=== PATIENT | male | born 1940 | race Caucasian/White ===

== ENCOUNTER 2021-02-15 10:15 | Outpatient (REF) | payer MEDICARE, SELFPAY ==
[2021-02-15 13:21] LABS: Alanine Aminotransferase 16 U/L (0-40); Anion Gap 12 (12-20); Blood Urea Nitrogen 18 mg/dL (9-16); Carbon Dioxide 30 mmol/L (22-29); Chloride 105 mmol/L (96-108); Estimated Glomerular Filt Rate 49; Potassium 4.8 mmol/L (3.3-5.1); Sodium 142 mmol/L (135-145)
== END 2021-02-15 10:16 | disposition home or self-care (01) ==
LOC: HO.10HDL 10:15
PROVIDERS: Absent Provider Internal Medicine Cardiovascular Disease; Visit Provider Family Medicine
DX: I10 Essential (primary) hypertension (principal); E78.00 Pure hypercholesterolemia, unspecified; Z79.899 Other long term (current) drug therapy
CPT/HCPCS: 36415; 80051; 82550; 82565; 84460; 84520

== ENCOUNTER 2021-07-12 10:04 | Outpatient (REF) | payer MEDICARE, SELFPAY ==
[2021-07-12 14:25] LABS: Anion Gap 13 (12-20); Blood Urea Nitrogen 22 mg/dL (9-16); Carbon Dioxide 28 mmol/L (22-29); Chloride 105 mmol/L (96-108); Cholesterol 136 mg/dL; Estimated Glomerular Filt Rate 49; HDL Cholesterol 49 mg/dL; LDL Cholesterol Calculated 70 mg/dl; Potassium 4.7 mmol/L (3.3-5.1); Sodium 141 mmol/L (135-145); Triglycerides 85 mg/dL
== END 2021-07-12 10:05 | disposition home or self-care (01) ==
LOC: HO.10HDL 10:04
PROVIDERS: Visit Provider Family Medicine
DX: E78.00 Pure hypercholesterolemia, unspecified (principal); N18.30 Chronic kidney disease, stage 3 unspecified
CPT/HCPCS: 36415; 80051; 80061; 82565; 84520

== ENCOUNTER 2022-01-24 07:31 | Outpatient (REF) | payer MEDICARE, SELFPAY ==
[2022-01-24 11:00] LABS: Alanine Aminotransferase 16 U/L (0-40); Anion Gap 12 (12-20); Blood Urea Nitrogen 17 mg/dL (9-16); Carbon Dioxide 27 mmol/L (22-29); Chloride 107 mmol/L (96-108); Estimated Glomerular Filt Rate 52; Potassium 4.2 mmol/L (3.3-5.1); Sodium 142 mmol/L (135-145)
== END 2022-01-24 07:32 | disposition home or self-care (01) ==
LOC: HO.10HDL 07:31
PROVIDERS: Visit Provider Family Medicine
DX: I10 Essential (primary) hypertension (principal); E78.00 Pure hypercholesterolemia, unspecified; Z79.899 Other long term (current) drug therapy
CPT/HCPCS: 36415; 80051; 82550; 82565; 84460; 84520

== ENCOUNTER 2022-09-26 10:50 | Outpatient (REF) | payer MEDICARE, SELFPAY ==
[2022-09-26 15:06] LABS: Alanine Aminotransferase 20 U/L (0-40); Anion Gap 16 (12-20); Aspartate Amino Transferase 23 U/L (5-37); Blood Urea Nitrogen 18 mg/dL (9-16); Carbon Dioxide 27 mmol/L (22-29); Chloride 104 mmol/L (96-108); Cholesterol 141 mg/dL; Estimated Glomerular Filt Rate 49; HDL Cholesterol 50 mg/dL; LDL Cholesterol Calculated 76 mg/dl; Potassium 4.8 mmol/L (3.3-5.1); Sodium 142 mmol/L (135-145); Triglycerides 77 mg/dL
== END 2022-09-26 10:51 | disposition home or self-care (01) ==
LOC: HO.10HDL 10:50
PROVIDERS: Visit Provider Family Medicine
DX: E78.00 Pure hypercholesterolemia, unspecified (principal); N18.30 Chronic kidney disease, stage 3 unspecified; Z79.899 Other long term (current) drug therapy
CPT/HCPCS: 36415; 80051; 80061; 82550; 82565; 84450; 84460; 84520

== ENCOUNTER 2023-04-10 10:18 | Outpatient (REF) | payer MEDICARE, SELFPAY ==
[2023-04-10 10:58] LABS: MANUAL DIFF FLAG NO
[2023-04-10 11:04] LABS: Basophils Absolute Auto 0.1 X10*3/uL (0.0-0.2); Basophils Percent Auto 0.9 % (0-2); Eosinophils Absolute Auto 0.2 X10*3/uL (0.0-0.4); Eosinophils Percent Auto 3.3 % (0-4); Hemoglobin 14.7 g/dl (14.0-18.0); Imm Gran Abs Auto 0.03 X10*3/uL (0.00-0.03); Imm Gran Pct Auto 0.5 % (0.0-0.4); Lymphocytes Absolute Auto 1.3 X10*3/uL (1.2-4.9); Lymphocytes Percent Auto 19.9 % (20-40); Mean Corpuscular Hemoglobin 30.9 pg (27.0-33.0); Mean Corpuscular Volume 96.8 fL (80.0-98.0); Mean Platelet Volume 9.9 fL (9.4-12.4); Monocytes Absolute Auto 0.8 X10*3/uL (0.1-1.2); Monocytes Percent Auto 11.9 % (2-11); Neutrophils Absolute Auto 4.2 x10*3/uL (2.0-8.3); Neutrophils Percent Auto 63.5 % (45-73); Platelet Count 182 X10*3/uL (160-400); Red Blood Count 4.75 X10*6/uL (4.60-5.80); Red Cell Distribution Width 13.7 % (11.0-16.0); White Blood Count 6.6 X10*3/uL (4.8-10.8)
[2023-04-10 11:49] LABS: Alanine Aminotransferase 18 U/L (0-40); Anion Gap 12 (12-20); Aspartate Amino Transferase 21 U/L (5-37); Blood Urea Nitrogen 21 mg/dL (9-16); Carbon Dioxide 28 mmol/L (22-29); Chloride 108 mmol/L (96-108); Estimated Glomerular Filt Rate 55; Potassium 4.7 mmol/L (3.3-5.1); Sodium 143 mmol/L (135-145)
== END 2023-04-10 10:19 | disposition home or self-care (01) ==
LOC: HO.10HDL 10:18
PROVIDERS: Visit Provider Family Medicine
DX: E78.00 Pure hypercholesterolemia, unspecified (principal); N18.30 Chronic kidney disease, stage 3 unspecified; R53.83 Other fatigue; Z79.899 Other long term (current) drug therapy
CPT/HCPCS: 36415; 80051; 82565; 84450; 84460; 84520; 85025

== ENCOUNTER 2023-12-06 08:37 | Outpatient (REF) | payer MEDICARE, SELFPAY ==
[2023-12-06 10:48] LABS: Alanine Aminotransferase 15 U/L (0-40); Anion Gap 12 (12-20); Aspartate Amino Transferase 20 U/L (5-37); Blood Urea Nitrogen 18 mg/dL (9-16); Carbon Dioxide 27 mmol/L (22-29); Chloride 106 mmol/L (96-108); Estimated Glomerular Filt Rate 48; Potassium 4.1 mmol/L (3.3-5.1); Sodium 141 mmol/L (135-145)
== END 2023-12-06 08:38 | disposition home or self-care (01) ==
LOC: HO.10HDL 08:37
PROVIDERS: Visit Provider Family Medicine
DX: I10 Essential (primary) hypertension (principal); E78.00 Pure hypercholesterolemia, unspecified; Z79.899 Other long term (current) drug therapy
CPT/HCPCS: 36415; 80051; 82550; 82565; 84450; 84460; 84520

== ENCOUNTER 2024-04-15 09:31 | Outpatient (REF) | payer MEDICARE, SELFPAY ==
[2024-04-15 11:31] LABS: Cholesterol 117 mg/dL (<200); Glucose Fasting 102 mg/dL (60-99); HDL Cholesterol 36 mg/dL (>40); LDL Cholesterol Calculated 65 mg/dL (<100); Triglycerides 81 mg/dL (<150)
== END 2024-04-15 09:32 | disposition home or self-care (01) ==
LOC: HO.10HDL 09:31
PROVIDERS: Visit Provider Family Medicine
DX: E78.00 Pure hypercholesterolemia, unspecified (principal); R73.9 Hyperglycemia, unspecified
CPT/HCPCS: 36415; 80061; 82947

== ENCOUNTER 2024-11-11 11:07 | Outpatient (REF) | payer MEDICARE, SELFPAY ==
[2024-11-11 14:01] LABS: Alanine Aminotransferase 13 U/L (0-40); Anion Gap 12 (12-20); Aspartate Amino Transferase 25 U/L (5-37); Blood Urea Nitrogen 20 mg/dL (9-16); Carbon Dioxide 27 mmol/L (22-29); Chloride 105 mmol/L (96-108); Estimated Glomerular Filt Rate 54; Potassium 4.2 mmol/L (3.3-5.1); Sodium 140 mmol/L (135-145)
== END 2024-11-11 11:08 | disposition home or self-care (01) ==
LOC: HO.10HDL 11:07
PROVIDERS: Visit Provider Family Medicine
DX: I10 Essential (primary) hypertension (principal); E78.00 Pure hypercholesterolemia, unspecified; Z79.899 Other long term (current) drug therapy
CPT/HCPCS: 36415; 80051; 82550; 82565; 84450; 84460; 84520

== ENCOUNTER 2025-09-21 13:01 | Outpatient (AMB) | payer MEDICARE, SELFPAY ==
--- NOTE | 2025-09-21 13:03 | MHC.PC.OV ---
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 Required: No Accompanied by: Spouse Allergies brimonidine (From Alphagan) Allergy (Mild, Verified 09/21/25 13:04) ITCH/BURNING strawberry (STRAWBERRY) Allergy (Unknown, Verified 09/21/25 13:04) HIVES gabapentin Adverse Reaction (Intermediate, Verified 09/21/25 13:26) vision changes, hearing changes Medication List - Last Reconciled 09/21/25 by Pili Cortez MD atorvastatin 80 mg PO DAILY coenzyme Q10 100 mg PO DAILY latanoprost 0.005% (Xalatan) 1 drp ophthalmic-Right BEDTIME metoprolol tartrate 25 mg PO BID timolol maleate 0.5% 1 drp ophthalmic-Right QAM Tobacco use date assessed: 09/21/25 Fall risk assessment: No Falls in past year Last assessed Fall Risk: 09/21/25 Dental Screening Dental Screen Date: 09/21/25 Did you have a dental visit in the last 12 months?: Yes Did you have a dental problem in the last 6 months where you did not have access to dental care?: No Was dental information given to patient?: Patient has dentist HPI HPI Comments History of Present Illness Details The patient is an 85-year-old male presenting to [facility]. Former patient of Dr. Benitez. Hypertension: The patient has a history of hypertension and monitors his blood pressure at home, reporting they are usually in range. His blood pressure tends to increase when he is sedentary. Recent home readings are around 129/62 mmHg, though it has reached 140 mmHg at times. Today's reading was 130/68 mmHg. Visual Impairment: The patient has significant visual impairment which restricts his ability to drive, play golf, and socialize. He has been seeing Dr. Garcia for his eye care for many years. His left eye issues include choroidal detachment, retinal detachment, cataract, and glaucoma. His right eye has glaucoma. He can see about 60% of a TV screen but must read one letter at a time, making it a slow process. His visual acuity is 20/60 to 20/150 on a good day, but it is limited to a small patch. His visual field was last measured at 12 degrees from center, with 10 degrees being the limit for legal blindness. He uses books on disc for reading. Coronary Artery Disease/Hyperlipidemia: The patient has a history of coronary artery disease, managed by Dr. Berumen. He had a myocardial infarction on January 25, 2012, during which he received a stent. He sees his manager finance annually. Herpes Zoster (Shingles): The patient developed shingles on January 05, 2024, describing the pain as the most intense he has ever experienced. He was treated with gabapentin for 10 days but stopped due to side effects of worsened vision and hearing, after which his sight partially improved. The shingles rash has resolved, but he reports persistent, though improving, residual sensitivity and tingling. Hearing Loss: The patient reports difficulty hearing and frequently misses words in conversations. He notes his left ear is not as good as his right ear. He has never had a formal hearing evaluation. He suspects the hearing issue may be related to his recent shingles infection or the gabapentin he took for it. Chronic Kidney Disease, Stage 3: due for repeat renal panel Surgical History: - Coronary artery stent placement in January 2012 - Plastic surgery on his leg at age 5 Social History: - Employment: Retired. He was formerly a production service manager at [employer] - Substance Use: Denies a history of smoking. - Functional Status: His visual impairment has restricted his ability to drive, play golf. [facility] Medical History (Updated 09/21/25 @ 13:50 by Pili Cortez MD) Subjective hearing change BPH (benign prostatic hyperplasia) Mixed hyperlipidemia CAD in [place] artery Essential tremor Early onset cerebellar ataxia Unspecified glaucoma Primary hypertension Idiopathic peripheral neuropathy Surgical History (Updated 09/21/25 @ 13:21 by Pili Cortez MD) H/O plastic surgery History of percutaneous coronary intervention Social History [facility]: [facility] Patient Tobacco Use Status: Never used Tobacco e-Cigarette/Vaping Use: Never Used Current occupational status: retired Questionnaire PHQ-9 Over the last 2 weeks, how often have you been bothered by any of the following problems? 1. Little interest or pleasure in doing things: not at all 2. Feeling down, depressed, or hopeless: not at all 3. Trouble falling or staying asleep, or sleeping too much: not at all 4. Feeling tired or having little energy: not at all 5. Poor appetite or overeating: not at all 6. Feeling bad about yourself - or that you are a failure or have let yourself or your family down: not at all 7. Trouble concentrating on things, such as reading the newspaper or watching television: not at all 8. Moving or speaking so slowly that other people could have noticed. Or the opposite - being so fidgety or restless that you have been moving around a lot more than usual: not at all 9. Thoughts that you would be better off or of hurting yourself in some way: not at all Total score: 0 Depression Screening Interpretation: Negative Depression Screening Done: Yes 70064 - PHQ-9 Billing: Yes Source: Developed by Drs. Gulshan Carson, Melodie Thomas, Marcial Purdy and colleagues, with an educational renetta from [facility]. Thrive Questionnaire Date Thrive assessed: 09/21/25 I am a: Patient What is your living situation today?: I have a steady place to live Within the past 12 months, did the food you bought not last and you didn't have the money to get more?: Never true Within the past 12 months, did you worry whether your food would run out before you got money to buy more?: Never true Do you have trouble paying for medicines?: No Do you have trouble getting transportation to medical appointments?: No Do you have trouble paying your heating and electricity bill?: No Do you have trouble taking care of your child, family member or friend?: No Do you have trouble with day-to-day activities such as bathing, preparing meals, shopping, managing finances, etc.?: No Are you currently unemployed and looking for a job?: No Are you interested in more education?: No Please select the resources that you would like help with: None Currently or been in a relationship where the following occur: No concerns reported THRIVE Score: 0 AUDIT C Alcohol Use Questionnaire (AUDIT-C) 1. How often do you have a drink containing alcohol?: Never 3. How often do you have six or more drinks on one occasion?: Never Total Score: 0 MADELINE-7 AMB Questionnaire MADELINE-7 Date MADELINE - 7 assessed: 09/21/25 Feeling nervous, anxious, or on edge: 1 = Several days Not being able to stop or control worryin = Not at all Worrying too much about different things: 0 = Not at all Trouble relaxin = Not at all Being so restless that it is hard to sit still: 0 = Not at all Becoming easily annoyed or irritable: 0 = Not at all Feeling afraid as if something awful might happen: 0 = Not at all Total MADELINE-7 score (0-4 normal; 5-9 mild; 10-14 moderate; 15-21 severe): 1 Source: Developed by Drs. Gulshan Carson, Melodie Thomas, Marcial Purdy and colleagues, with an educational renetta from [facility]. Review of Systems Narrative Review of Systems - General: no fevers, no chills - Eyes: per hpi - Ears: Reports hearing loss, worse in the left ear. He misses words in conversation. - Cardiovascular: Denies chest pain or shortness of breath. Denies swelling. - Neurological: Reports residual tingling/sensitivity from a recent shingles infection. Denies balance issues specifically but reports a history of neuropathy. - Integumentary: Reports easy bruising/skin changes with scratching, possibly related to aspirin use. Physical exam (Primary Care) Vital Signs: Last Vital Signs Temp 97.1 F 09/21/25 13:06 Pulse 68 09/21/25 13:06 Resp 16 09/21/25 13:06 BP 130/68 09/21/25 13:06 Pulse Ox 97 09/21/25 13:06 Oxygen Delivery Method Room Air 09/21/25 13:06 BMI result Body Mass Index 23.2 Tobacco/Smoking Status: Tobacco use Status Tobacco use date assessed 09/21/25 09/21/25 13:13 Patient Tobacco Use Status Never used Tobacco 09/21/25 13:13 e-Cigarette/Vaping Use Never Used 09/21/25 13:13 PHQ-9: PHQ-9 Score PHQ-9: Total score 0 09/21/25 14:15 Depression Screening Interpretation: Negative Thrive Assessment: Date of Thrive Assessment Date Thrive assessed 09/21/25 09/21/25 13:13 Currently or been in a relationship where the following occur: No concerns reported Narrative Physical Exam - Gen: NAD. - HEENT: Both ear canals and tympanic membranes are clear. Oropharynx is without redness. - Neck: Carotid arteries have normal flow without bruits. - Heart: Regular rhythm with a soft murmur. - Lungs: Clear to auscultation bilaterally, no wheezing. - Abdomen: Soft, non-tender, non-distended with normal bowel sounds. - Extremities: No swelling in legs. Office Procedures Flu Questionnaire Does the patient have a severe egg allergy?: No Does the patient have severe life threatening allergies?: No Does the patient have a fever or illness today?: No Has the patient ever had Guillain-Newsoms Syndrome?: No Has the patient ever had any past reaction to a flu shot?: No Immunizations Fluzone High-Dose (PF) 180 mcg/0.5 mL intramuscular syringe Performing Provider: Pili Cortez MD Performing Location: [facility]-10 HD Administered by: Tiffanie Rivera CMA on 09/21/25 13:43 Dose Route Admin Location Dispensed Lot Number Expiration Date [facility] Malted Milk Mixer 0.5 mL IM Right Deltoid 0.5 mL [id number] 04/12/26 [id number] [employer] Total Dispensed Waste 0.5 mL 0 % VIS Given Date VIS Provided VIS Publication Date 09/21/25 Single Vaccine 24 Eligibility Eligibility Date Funding Source Not [facility] Eligible 09/21/25 Private Coding Level of Care Code New Pt Level 4 (41468) Add On Problem Visit Only Diagnoses Primary hypertension I10 CAD in [place] artery I25.10 Mixed hyperlipidemia E78.2 Additional Codes PHQ-9 - 58842 - PHQ-9 Billing: Yes ([id number]) Assessment & Plan Assessment & Plan (1) Primary hypertension: Code(s): I10 - Essential (primary) hypertension Category: Medical (2) CAD in [place] artery: Code(s): I25.10 - Atherosclerotic heart disease of [place] coronary artery without angina pectoris Category: Medical (3) Mixed hyperlipidemia: Code(s): E78.2 - Mixed hyperlipidemia Category: Medical Plan Assessment and Plan 1. Establishment of care - The patient is an 85-year-old male establishing care. - He has multiple chronic conditions including CAD, HTN, HLD, glaucoma, and CKD stage 3. - check renal panel, cbc, lipid panel - continue current medications 2. Hearing loss - The patient reports new-onset hearing loss and difficulty understanding speech, which he suspects could be related to a recent shingles infection or a reaction to gabapentin. - A referral will be placed to [facility] for a formal hearing evaluation to establish a baseline and determine if assistive devices are needed. 3. Preventative Care - Influenza vaccine: The patient requested a flu shot. It was administered in the office today, with precautions taken (lying down) due to his history of vasovagal responses to injections. - Shingles vaccine: The patient asked about getting the shingles vaccine post-infection. He was advised to wait until the residual neuropathic symptoms (postherpetic neuralgia) have fully resolved before receiving the vaccine. 4. Stage 3 Chronic Kidney Disease, CAD and Hypertension - check renal panel - check urine microalbumin 5. Follow-up - The patient will follow up in the clinic in approximately 3-4 months. Plan - Administered influenza vaccine in-office today, with the patient lying down due to a history of vasovagal response to injections. - Recommended deferring the Shingrix (shingles) vaccine until his postherpetic neuralgia symptoms resolve. - Ordered fasting labs - Placed a referral to the [facility] for a formal audiology evaluation due to his reported hearing loss. Patient Instructions - Please schedule an appointment to get your fasting blood work done. - You need to fast for 8-10 hours before your blood test. - You can drink water before the test and should take your medications as usual. - You will receive a referral for a hearing test to check for hearing loss. Orders: Orders Influenza [id number] High Dose Immunization 09/21/25 Z23 - Encounter for immunization Comprehensive Met. Panel 09/21/25 E78.2 - Mixed hyperlipidemia, I10 - Essential (primary) hypertension, I25.10 - Atherosclerotic heart disease of [place] coronary artery without angina pectoris Lipid Panel 09/21/25 E78.2 - Mixed hyperlipidemia, I10 - Essential (primary) hypertension, I25.10 - Atherosclerotic heart disease of [place] coronary artery without angina pectoris Vitamin D 25-OH Total 09/21/25 E78.2 - Mixed hyperlipidemia, I10 - Essential (primary) hypertension, I25.10 - Atherosclerotic heart disease of [place] coronary artery without angina pectoris Vitamin B12 09/21/25 E78.2 - Mixed hyperlipidemia, I10 - Essential (primary) hypertension, I25.10 - Atherosclerotic heart disease of [place] coronary artery without angina pectoris Microalbumin, Random (w Creat) 09/21/25 E78.2 - Mixed hyperlipidemia, I10 - Essential (primary) hypertension, I25.10 - Atherosclerotic heart disease of [place] coronary artery without angina pectoris Complete Blood Count Auto Diff 09/21/25 E78.2 - Mixed hyperlipidemia, I10 - Essential (primary) hypertension, I25.10 - Atherosclerotic heart disease of [place] coronary artery without angina pectoris Hemoglobin A1c 09/21/25 E78.2 - Mixed hyperlipidemia, I10 - Essential (primary) hypertension, I25.10 - Atherosclerotic heart disease of [place] coronary artery without angina pectoris TSH reflex Free T4 09/21/25 E78.2 - Mixed hyperlipidemia, I10 - Essential (primary) hypertension, I25.10 - Atherosclerotic heart disease of [place] coronary artery without angina pectoris Referrals Speech and Hearing Referral H91.90 - Unspecified hearing loss, unspecified ear Medications: New aspirin 81 mg PO DAILY famotidine-Ca carb-mag hydrox [phone] mg (Pepcid Complete) 1 tab PO BEDTIME PRN
[2025-09-21 13:06] VITALS: BP 130/68; PULSE 68; RESP 16; TEMP 36.2; O2SAT 97; BMI 23.2
== END 2025-09-21 13:58 | disposition home or self-care (01) ==
LOC: HO.HMCHD 13:02
PROVIDERS: PCP Family Medicine; Visit Provider Internal Medicine
DX: I10 Essential (primary) hypertension (principal); I25.10 Atherosclerotic heart disease of native coronary artery without angina pectoris; E78.2 Mixed hyperlipidemia

== ENCOUNTER → 2025-09-21 13:01 | Outpatient (BNVA) | payer MEDICARE, SELFPAY | PROVIDERS: PCP Family Medicine; Visit Provider Internal Medicine | DX: I12.9 Hypertensive chronic kidney disease with stage 1 through stage 4 chronic kidney disease, or unspecified chronic kidney disease (principal); N18.30 Chronic kidney disease, stage 3 unspecified; I25.10 Atherosclerotic heart disease of native coronary artery without angina pectoris; E78.2 Mixed hyperlipidemia; Z23 Encounter for immunization; H40.9 Unspecified glaucoma; H91.90 Unspecified hearing loss, unspecified ear; Z13.31 Encounter for screening for depression; Z13.39 Encounter for screening examination for other mental health and behavioral disorders | CPT/HCPCS: 90471; 90662; 96127; 99202 ==

== ENCOUNTER 2025-09-30 10:38 | Outpatient (REF) | payer MEDICARE, SELFPAY ==
[2025-09-30 13:07] LABS: MANUAL DIFF FLAG NO
[2025-09-30 13:10] LABS: Hematocrit 44.7 % (42.0-52.0); Hemoglobin 14.1 g/dl (14.0-18.0); Imm Gran Abs Auto 0.01 X10*3/uL (0.00-0.03); Imm Gran Pct Auto 0.2 % (0.0-0.4); Lymphocytes Absolute Auto 1.0 X10*3/uL (1.2-4.9); Mean Corpuscular HGB Conc 31.5 g/dl (31.0-36.0); Mean Corpuscular Hemoglobin 29.8 pg (27.0-33.0); Mean Corpuscular Volume 94.5 fL (80.0-98.0); NRBC Abs Auto 0.000 X10*3/uL (0.0-0.012); NRBC Pct Auto 0.0 /100WBC (0.0-0.2); Platelet Count 165 X10*3/uL (160-400); Red Blood Count 4.73 X10*6/uL (4.60-5.80); White Blood Count 5.1 X10*3/uL (4.8-10.8)
--- OUTSIDE RECORDS SUMMARY | 2025-09-30 13:29 | XMS_ITS | Patient Health Record ---
Author Organization [facility] Address [address] [place] [id number] Care Team Providers Care Cell Tuber Hand Name Role Phone Luis E Hale Jr [phone] Reason For Referral No Information Plan Of Treatment No Information
[2025-09-30 13:48] LABS: Alanine Aminotransferase 17 U/L (0-40); Albumin Level 4.1 g/dL (3.5-5.0); Alkaline Phosphatase 86 U/L (39-117); Anion Gap 11 (12-20); Aspartate Amino Transferase 33 U/L (5-37); Blood Urea Nitrogen 22 mg/dL (9-16); Calcium 9.4 mg/dL (8.4-10.2); Carbon Dioxide 28 mmol/L (22-29); Chloride 103 mmol/L (96-108); Cholesterol 126 mg/dL (<200); Estimated Glomerular Filt Rate 39; HDL Cholesterol 48 mg/dL (>40); Potassium 4.3 mmol/L (3.3-5.1); Sodium 138 mmol/L (135-145); Total Protein 7.8 g/dL (6.5-8.0); Triglycerides 65 mg/dL (<150)
[2025-09-30 13:58] LABS: Vitamin B12 606 pg/mL (200-900)
[2025-09-30 14:24] LABS: Microalbum/Creatinine Ratio Ur 7.2 ug/mg cr (<30)
== END 2025-09-30 10:39 | disposition home or self-care (01) ==
LOC: HO.10HDL 10:38
PROVIDERS: Visit Provider Internal Medicine
DX: I10 Essential (primary) hypertension (principal); I25.10 Atherosclerotic heart disease of native coronary artery without angina pectoris; E78.2 Mixed hyperlipidemia; Z13.1 Encounter for screening for diabetes mellitus; Z13.21 Encounter for screening for nutritional disorder
CPT/HCPCS: 36415; 80053; 80061; 82043; 82306; 82570; 82607; 83036; 84443; 85025